=== PATIENT | female | born 1995 | race African-American/Black ===

== ENCOUNTER 2016-08-05 11:00 | Emergency (ER) | payer OTHER ==
[~2016-08-05] VITALS: Ht 157.5 cm; Wt 77.5 kg
[2016-08-05 11:03] VITALS: BP 150/74; PULSE 85; RESP 15; TEMP 98.2; O2SAT 98
--- NOTE | 2016-08-05 11:56 | PD ---
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 Symptoms started yesterday. She endorses pruritus associated with the discharge. She does endorse a little bit of dysuria as well. Denies any abdominal pain, flank pain, fevers or chills. She has had one new sexual partner in the past month and they do not use any sort of barrier contraception.. Last menstrual period was July 09. No other complaints. PFSH Past Medical History Medical History: Denies Significant Hx ?: Not Social History Alcohol Use: Yes Tobacco Use: No Allergies-Medications (Allergen,Severity, Reaction): Coded Allergies: Penicillin (Verified Allergy, Unknown, Hives, 08/05/16) Reported Meds & Prescriptions Reported Meds & Active Scripts Active Miconazole 3 Vaginal Cream 4 % Cream 1 Appl VAGINAL HS 3 Days Macrobid (Nitrofurantoin Monoh/Nitrofur Macro) 100 Mg Cap 100 Mg PO BID 7 Days Multi +Dha 27-0.8-228 mg ( Vit W/ Ferrous Fumara) 1 Cap Cap 1 Tab PO DAILY 90 Days Review of Systems General / Constitutional: No: Fever, Chills Gastrointestinal: No: Abdominal Pain Genitourinary: Positive: Dysuria, Discharge Physical Exam Narrative Examined in the presence of a female nurse. GENERAL: Well-developed well-nourished female in no acute distress SKIN: Warm and dry. HEAD: Atraumatic. Normocephalic. EYES: Pupils equal and round. No scleral icterus. No injection or drainage. ENT: No nasal bleeding or discharge. Mucous membranes pink and moist. NECK: Trachea midline. No JVD. CARDIOVASCULAR: Regular rate and rhythm. No murmur appreciated. RESPIRATORY: No accessory muscle use. Clear to auscultation. Breath sounds equal bilaterally. GASTROINTESTINAL: Abdomen soft, non-tender, nondistended. Hepatic and splenic margins not palpable. No CVA tenderness. Pelvic examination performed in the presence of a female nurse: Thick white vaginal discharge is noted. There is no cervical motion tenderness, no adnexal tenderness or palpable masses. MUSCULOSKELETAL: No obvious deformities. NEUROLOGICAL: Awake and alert. No obvious cranial nerve deficits. Motor grossly within normal limits. Normal speech. PSYCHIATRIC: Appropriate mood and affect; insight and judgment normal. Data Data Last Documented VS Vital Signs Date Time Temp Pulse Resp B/P Pulse Ox O2 Delivery O2 Flow Rate FiO2 08/05/16 11:03 98.2 85 15 150/74 98 Orders Gc And Chlamydia Pcr (08/05/16 11:53) Wet Prep Profile (08/05/16 11:53) Urinalysis - C+S If Indicated (08/05/16 11:53) Ed Urine Pregnancytest Poc (08/05/16 11:53) Azithromycin Powd Pack (Zithromax Powd P (08/05/16 13:00) Ceftriaxone Inj (Rocephin Inj) (08/05/16 13:00) Lidocaine 1% Inj (50 Ml) (Xylocaine 1% I (08/05/16 13:00) Labs Laboratory Tests Test 08/05/16 08/05/16 12:09 12:25 Urine Color YELLOW Urine Turbidity HAZY Urine pH 5.5 Urine Specific [place] 1.024 Urine Protein TRACE mg/dL Urine Glucose (UA) NEG mg/dL Urine Ketones TRACE mg/dL Urine Occult Blood NEG Urine Nitrite NEG Urine Bilirubin NEG Urine Urobilinogen LESS THAN 2.0 MG/DL Urine Leukocyte Esterase LARGE Urine RBC 3 /hpf Urine WBC 6 /hpf Urine Squamous Epithelial 4 /hpf Cells Urine Bacteria RARE /hpf Urine Mucus FEW /lpf Microscopic Urinalysis Comment CULT NOT INDICATED Clue Cells (Wet Prep) NONE SEEN Vaginal Trichomonas (Wet Prep) NONE SEEN Vaginal Yeast (Wet Prep) PRESENT MDM Medical Decision Making Medical Screen Exam Complete: Yes Emergency Medical Condition: Yes Medical Record Reviewed: Yes Differential Diagnosis Vaginal discharge, burning, itching and irritation, slight dysuria. Differential diagnosis includes vaginitis, bacterial vaginosis, trichomoniasis, cervicitis, cystitis, pelvic inflammatory disease Narrative Course Pelvic examination is reassuring. No evidence of pelvic inflammatory disease. She did have a positive urine test. The patient was informed of her positive test, early given that her last menstrual period Was late June. Wet prep is positive for yeast. Given that she is we will avoid oral antifungals and give the patient prescription for miconazole vaginal cream. She also has bacteria which in the setting of issue be treated with Macrobid. Chlamydia and gonorrhea are currently pending and given the patient's new sexual partner she' ll be treated empirically with Rocephin and azithromycin pending the results. She is being discharged and recommended outpatient follow-up with a psychologist social for routine care. Diagnosis Primary Impression: Early stage of Additional Impressions: Vaginitis Qualified Code: N76.0 - Acute vaginitis Asymptomatic bacteriuria Referrals: Title I Director Additional Instructions: Medication as prescribed. Avoid tobacco products, alcohol products, illicit drug use. Establish care with an WEIGHT TRAINING INSTRUCTOR for your . Return for any emergent medical conditions. Med/Other Pt SpecificInfo: Prescription(s) given Scripts Miconazole 3 Vaginal Cream 4 % Cream1 Appl VAGINAL HS 3 Days Ref 0 Prov:Stephanie Miller MD 08/05/16 Nitrofurantoin Monohydrate Macrocrystals (Macrobid)100 Mg [id number] Mg PO BID 7 Days Ref 0 Prov:Stephanie Miller MD 08/05/16 Vit W/ Ferrous Fumara ( Multi +Dha 27-0.8-228 mg)1 Cap Cap1 Tab PO DAILY 90 Days Prov:Stephanie Miller MD 08/05/16 Disposition: 01 DISCHARGE HOME Condition: Stable Felipe Ordaz Aug 05, 2016 11:56
[2016-08-05] MEDS ORDERED: PRENCAP10 PO (12:54)
[2016-08-05 12:57] LABS: BACTERIA, URINE RARE /hpf; BLOOD, URINE NEG (NEG); COMMENT (UR) CULT NOT INDICATED; CULTURE IF INDICATED CULT NOT INDICATED; GLUCOSE,URINE NEG (NEG); KETONE, URINE TRACE mg/dL (NEG); MUCUS URINE FEW /lpf (OCC); NITRITE,URINE NEG (NEG); PH, URINE 5.5 (5.0-8.5); SQUAMOUS EPITHELIAL CELL URINE 4 /hpf (0-5); URINE COLOR YELLOW (YELLW/STRAW)
[2016-08-05] MEDS ORDERED: AZITHROMYCIN PWD FOR SUSP 1 GM PACKET PO ONE (13:00)
[2016-08-05] MEDS ORDERED: LIDOCAINE HCL 1% 50 ML VIAL IM ONE (13:00)
[2016-08-05] MEDS ORDERED: cefTRIAXone 250 MG VIAL IM ONE (13:00)
[2016-08-05] MEDS ORDERED: MACR100C2 PO (13:01)
[2016-08-05] MEDS ORDERED: MICO4CRE VAGINAL (13:01)
--- NOTE | 2016-08-05 13:10 | PD ---
Data Data Last Documented VS Vital Signs Date Time Temp Pulse Resp B/P Pulse Ox O2 Delivery O2 Flow Rate FiO2 08/05/16 11:03 98.2 85 15 150/74 98 Orders Gc And Chlamydia Pcr (08/05/16 11:53) Wet Prep Profile (08/05/16 11:53) Urinalysis - C+S If Indicated (08/05/16 11:53) Ed Urine Pregnancytest Poc (08/05/16 11:53) Azithromycin Powd Pack (Zithromax Powd P (08/05/16 13:00) Ceftriaxone Inj (Rocephin Inj) (08/05/16 13:00) Lidocaine 1% Inj (50 Ml) (Xylocaine 1% I (08/05/16 13:00) Labs Laboratory Tests Test 08/05/16 08/05/16 12:09 12:25 Urine Color YELLOW Urine Turbidity HAZY Urine pH 5.5 Urine Specific [place] 1.024 Urine Protein TRACE mg/dL Urine Glucose (UA) NEG mg/dL Urine Ketones TRACE mg/dL Urine Occult Blood NEG Urine Nitrite NEG Urine Bilirubin NEG Urine Urobilinogen LESS THAN 2.0 MG/DL Urine Leukocyte Esterase LARGE Urine RBC 3 /hpf Urine WBC 6 /hpf Urine Squamous Epithelial 4 /hpf Cells Urine Bacteria RARE /hpf Urine Mucus FEW /lpf Microscopic Urinalysis Comment CULT NOT INDICATED Clue Cells (Wet Prep) NONE SEEN Vaginal Trichomonas (Wet Prep) NONE SEEN Vaginal Yeast (Wet Prep) PRESENT MDM Supervised Visit with TUCKER: Yes Narrative Course The history, exam, and medical decision-making in the associated midlevel provider note were completed with my assistance. I reviewed and agree with the findings presented. I attest that I had a [id number] encounter with the patient on the same day, and personally performed and documented my assessment and findings in the medical record. *My assessment and Findings: This is a 21-year-old female who presents to the emergency department with vaginal discharge. She has evidence of a yeast infection. There is also concern for possible STD exposure. She was given ceftriaxone and azithromycin and will be discharged on Macrobid for bacteriuria. Patient also incidentally has a positive test. She is having no abdominal pain. Diagnosis Primary Impression: Early stage of Additional Impressions: Vaginitis Qualified Code: N76.0 - Acute vaginitis Asymptomatic bacteriuria Referrals: Auto Detailer Additional Instruction: Medication as prescribed. Avoid tobacco products, alcohol products, illicit drug use. Establish care with an AUTO DETAILER for your . Return for any emergent medical conditions. Scripts Miconazole 3 Vaginal Cream 4 % Cream1 Appl VAGINAL HS 3 Days Ref 0 Prov:Stephanie Miller MD 08/05/16 Nitrofurantoin Monohydrate Macrocrystals (Macrobid)100 Mg [id number] Mg PO BID 7 Days Ref 0 Prov:Stephanie Miller MD 08/05/16 Vit W/ Ferrous Fumara ( Multi +Dha 27-0.8-228 mg)1 Cap Cap1 Tab PO DAILY 90 Days Prov:Stephanie Miller MD 08/05/16 Disposition: 01 DISCHARGE HOME Condition: Stable Stephanie Miller MD Aug 05, 2016 13:10
[2016-08-05 15:05] LABS: CHLAMYDIA PCR NOT DETECTED (NOT DETECT); NEISSERIA PCR NOT DETECTED (NOT DETECT)
== END 2016-08-05 14:07 | disposition home or self-care (01) ==
LOC: NEPB 11:00
DX: O23.591 Infection of other part of genital tract in pregnancy, first trimester (principal); Z3A.00 Weeks of gestation of pregnancy not specified
CPT/HCPCS: 81001; 84703; 87210; 87491; 87591; 96372; 99283; J0696